=== PATIENT | female | born 1970 | race Caucasian/White ===

== ENCOUNTER 2017-09-18 09:25 | Emergency (ER) | payer BC ==
--- NOTE | 2017-09-18 11:05 | RAD ---
RIGHT KNEE 4 VIEWS: Date: 09/18/17 HISTORY: Injury. Pain. COMPARISON: 08/11/08. FINDINGS: No joint effusion. Joint spaces are preserved. No fracture or malalignment. Nonspecific soft tissue calcifications project over the proximal right lower extremity. IMPRESSION: No post-traumatic change. POS: [facility]
== END 2017-09-18 11:47 | disposition home or self-care (01) ==
LOC: ERS 09:25
DX: S83.411A Sprain of medial collateral ligament of right knee, initial encounter (principal); F41.9 Anxiety disorder, unspecified; F17.210 Nicotine dependence, cigarettes, uncomplicated; X50.1XXA Overexertion from prolonged static or awkward postures, initial encounter

== ENCOUNTER 2020-05-18 09:15 | Inpatient (IN) | payer BC, OTHER ==
[2020-05-18 11:41] VITALS: BMI 36.6
[2020-05-21] MEDS ORDERED: Fentanyl 100 MCG/2 ML VIAL ONE ×4 (06:47→11:12)
[2020-05-21] MEDS ORDERED: Midazolam HCl 2 mg/2 ml Vial ONE (06:47)
[2020-05-21] MEDS ORDERED: Tranexamic Acid 1,000 MG/10 ML VIAL ONE (07:07)
[2020-05-21] MEDS ORDERED: Sodium Chloride 0.9% 100 ML ONE (07:07)
[2020-05-21] MEDS ORDERED: Vancomycin 1.5 GRAM/300 ML BAG ONE (07:07)
[2020-05-21] MEDS ORDERED: Promethazine HCl 25 MG/ML VIAL IM PRN ×2 (07:34→17:06)
[2020-05-21] MEDS ORDERED: Acetaminophen 325 MG TAB PO PRN ×2 (07:34→11:36)
[2020-05-21] MEDS ORDERED: HYDROcodone/Acetaminophen 10/325 mg Tablet PO PRN ×4 (07:34→11:36)
[2020-05-21] MEDS ORDERED: traMADol HCl 50 MG TAB PO PRN ×4 (07:34→11:36)
[2020-05-21] MEDS ORDERED: Ropivacaine 0.2% 550 ML 550 ML NERVE BLCK SCH (07:34)
[2020-05-21] MEDS ORDERED: Zolpidem Tartrate 5 MG TAB PO PRN ×2 (07:34→17:06)
[2020-05-21] MEDS ORDERED: Ondansetron PF 4 MG/2 ML Vial IVP PRN ×2 (07:34→17:06)
[2020-05-21] MEDS ORDERED: Fentanyl 100 MCG/2 ML VIAL IV PRN (07:34)
[2020-05-21] MEDS ORDERED: Bupivacaine HCl 0.5%/Epinephrine 1:200,000/PF 30 ml Vial ONE (09:39)
[2020-05-21] MEDS ORDERED: Dexamethasone 20 MG/5 ML VIAL ONE (09:44)
[2020-05-21] MEDS ORDERED: Ondansetron PF 4 MG/2 ML Vial ONE (09:44)
[2020-05-21] MEDS ORDERED: Ketorolac Tromethamine 30 MG/ML VIAL ONE (09:44)
[2020-05-21] MEDS ORDERED: Ropivacaine 0.2% HCl/PF (40 MG/20 ML VIAL) ONE (09:44)
[2020-05-21] MEDS ORDERED: Ropivacaine 0.5% HCl/PF (150 MG/30 ML VIAL) ONE (09:44)
[2020-05-21] MEDS ORDERED: Glycopyrrolate 0.2 MG/ML 5 ML SYRINGE ONE (09:44)
[2020-05-21] MEDS ORDERED: PHENYLEPHRINE-NS 100 MCG/ML 10 ML SYRINGE ONE (09:44)
[2020-05-21] MEDS ORDERED: Rocuronium Bromide 10 MG/ML (10ML VIAL) ONE (09:44)
[2020-05-21] MEDS ORDERED: PROPOFOL 200 MG/20 ML VIAL ONE (09:44)
[2020-05-21] MEDS ORDERED: EPHEDRINE 25 MG/5 ML SYRINGE ONE (09:44)
[2020-05-21] MEDS ORDERED: Lidocaine 1% PF 5 ML VIAL ONE (09:44)
[2020-05-21] MEDS ORDERED: Esmolol 100 MG/10 ML VIAL ONE (09:44)
[2020-05-21] MEDS ORDERED: HYDROmorphone 2 MG/ML VIAL ONE (10:06)
[2020-05-21] MEDS ORDERED: SUGAMMADEX SODIUM 200 MG/2 ML VIAL ONE (10:07)
[2020-05-21] MEDS ORDERED: Milk Of Magnesia 30 ML UDCUP PO PRN (11:36)
[2020-05-21] MEDS ORDERED: diphenhydrAMINE 50 MG CAP PO PRN (11:36)
[2020-05-21] MEDS ORDERED: Methocarbamol 500 MG TAB PO PRN (11:36)
[2020-05-21] MEDS ORDERED: Bisacodyl 10 MG SUPP PR PRN (11:36)
[2020-05-21] MEDS ORDERED: Ondansetron ODT 4 MG TAB PO PRN (11:36)
[2020-05-21] MEDS ORDERED: Methocarbamol 1 GM/10 ML VIAL SLOW IVP PRN (11:36)
[2020-05-21] MEDS ORDERED: Ibuprofen 200 MG TAB PO PRN (11:54)
[2020-05-21] MEDS ORDERED: Lorazepam 1 MG TAB PO PRN (11:55)
[2020-05-21] MEDS ORDERED: Ketorolac Tromethamine 30 MG/ML VIAL IVP SCH (12:00)
[2020-05-21] MEDS: Dextrose 5 %-0.45 % NaCl 1,000 ML IV SCH (12:22)
[2020-05-21] MEDS: CEFAZOLIN 2 GM in Premix Bag 1 BAG IVPB SCH (15:45)
[2020-05-21] MEDS ORDERED: Naloxone HCl 0.4 mg/ml Vial IV PRN (17:06)
[2020-05-21] MEDS ORDERED: diphenhydrAMINE 50 MG/ML VIAL IM PRN (17:06)
[2020-05-21] MEDS ORDERED: diphenhydrAMINE 25 MG CAP PO PRN (17:06)
[2020-05-21] MEDS ORDERED: fentaNYL Citrate/PF 2,000 MCG in Sodium Chloride 0.9% 60 ML IV PRN (17:06)
[2020-05-21] MEDS ORDERED: diphenhydrAMINE 50 MG/ML VIAL IVP PRN (17:06)
[2020-05-21] MEDS ORDERED: Communication Order-Pharmacy FS PRN (17:15)
[2020-05-21] MEDS ORDERED: Vancomycin 1.5 GRAM/300 ML BAG 1.5 GM in Premix Bag 1 BAG IVPB SCH (19:00)
[2020-05-21] MEDS: Famotidine 20 MG TAB PO SCH (21:56)
[2020-05-22] MEDS: CEFAZOLIN 2 GM in Premix Bag 1 BAG IVPB SCH (00:45)
[2020-05-22] MEDS: Dextrose 5 %-0.45 % NaCl 1,000 ML IV SCH ×3 (02:01→20:57)
[2020-05-22] MEDS ORDERED: PHENTERMINE HCL 37.5 MG PO SCH (07:30)
[2020-05-22] MEDS: Famotidine 20 MG TAB PO SCH ×2 (08:42→20:54)
[2020-05-22] MEDS ORDERED: traMADol HCl 50 MG TAB PO PRN (10:23)
[2020-05-22] MEDS ORDERED: Fentanyl 100 MCG/2 ML VIAL IV PRN (10:24)
[2020-05-22] MEDS ORDERED: traMADol HCl 50 MG TAB PO SCH (10:30)
[2020-05-22] MEDS ORDERED: Lorazepam 2 MG/ML VIAL SLOW IVP PRN (13:05)
[2020-05-22] MEDS: Ketorolac Tromethamine 30 MG/ML VIAL IVP PRN (15:42)
[2020-05-22] MEDS: HYDROcodone/Acetaminophen 10/325 mg Tablet PO PRN ×3 (15:42→23:20)
--- NOTE | 2020-05-22 17:07 | OP ---
DATE OF PROCEDURE: 05/21/2020 PREOPERATIVE DIAGNOSES: Right shoulder osteoarthritis, biceps tendinopathy. POSTOPERATIVE DIAGNOSES: Right shoulder osteoarthritis, biceps tendinopathy. PROCEDURES PERFORMED: 1. Right total shoulder arthroplasty. 2. Right biceps tenodesis. CHILD SUPPORT OFFICER: Thomas Badillo PA-C ANESTHESIOLOGIST: Tao Kovacs MD ANESTHESIA: The patient received a general endotracheal intubation with interscalene block. ESTIMATED BLOOD LOSS: Less than 250 mL. TOURNIQUET TIME: None. IMPLANTS: Tornier small 40 Perform CortiLoc, size 1 Simpliciti nucleus, 41 x 15 mm head. ANTIBIOTICS: Ancef 2 g, vancomycin 1.5 g, and TXA 1 g. COMPLICATIONS: None. HISTORY: Ms. Hewitt is a 49-year-old female, who presented with years of right shoulder pain. The patient failed conservative measures with injection, anti-inflammatories, therapy, and desired to have a right total shoulder arthroplasty. I discussed the risks and benefits of the surgery to include pain , scar, bleeding, infection, damage to vital structures, decreased range of motion and strength, continued pain despite surgical intervention, need for further surgeries, failure to procedure, long-term failure of the implants, damage to vital structures, nerves, arteries, tendons, decreased range of motion or strength, DVT, loss of life or limb. The patient understood the risks and benefits and elected to proceed. DESCRIPTION OF PROCEDURE: Time-out was performed designating the patient's right upper extremity as the operative site based on site, consents, and markings. After time-out, the patient's right upper extremity was prepped and draped in sterile fashion, placed in beach chair position. Placed a deltopectoral incision, dissected down through skin to fat. We came into the deltopectoral interval and achieved an elevated plane between the pectoralis and the deltoid coming down to the conjoined tendon. My assistant bookkeeper retracted the deltopectoral interval with Hohmanns to expose the interval. We then placed retractors, held until we positioned and placed [place] retractor in position to hold the tissue open. I came into the biceps, exposed the biceps that was cut by my assistant bookkeeper. We then used a small osteotome to make a wedge for the LTO, passed a #5 Ethibond from anterior to posterior and back for a whipstitch to control the tendon. We released the entirety of the capsule and we brought the head into position. My assistant bookkeeper placed a Crego to position the head as well as a Hohmann to bring it down into position to cut our head cut. We had to take 2 more mm off and smooth the cut to get more alignment with the anatomy. We rongeured the osteophytes. We then placed a sizer and centered the sizer over the head for position of our center pin drilled bicortically, opened our center reamer and cut our flanges for our Simpliciti nucleus. We then placed the retractor cover and went to the glenoid; we did a 360 degree release. My assistant bookkeeper held it with a Bankart and Darrach to expose the glenoid. He cut the anterior and inferior, and I cut the posterior and superior aspects to see if there was any release of the labrum. We exposed the entirety of glenoid. We sized to a 40 with Bankart in position to retract the humerus. We placed a 40 small Simpliciti pin through the guide, reamed for a 40 small and then drilled our center hole, placed our peg drill hole component first, and then drilled all three holes, placing pegs, trialed, removed, washed, left the stem and star in place with a 10 mL syringe, cemented all three peripheral holes, impacted in place, removed the cement, any excess cement washed and then moved back to the humerus. We left the nucleus trial sized to a 41 mm x 15 mm head. Once the cement was hardened, my assistant bookkeeper reduced the shoulder. We were able to posterior translate internal and external rotation and overhead elevation, and had good range of motion. After the cement was hardened, we washed, we removed out the trial. We passed three #5 Ethibond stitches just lateral to the LTO that we had performed through bone. We placed one more at the level of the cuff and back through the cuff for repair. We passed those through the nucleus of the final implant and then impacted into place. We placed our 41 x 15 mm head over top. We then started closing with number 5 ethibond stitch from inferior to superior over LTO our three stitches. We used our final stitch to pass back. Before we passed our biceps into the rotator interval and sewed it in place, we placed our final stitch to pass back to the rotator cuff and so in the lateral position we then used the suture we had placed more medially from the LTO as a double row and cut the stitches. We sewed the rotator interval, closed with #1 Ethibond. We washed. My assistant bookkeeper helped with closure of the deltopectoral interval as well as the subcu and anabella. The patient will be placed in a sling. Begin elbow, wrist, and hand motion, and will be discharged home tomorrow if pain is controlled. Job ID: [id number] MTDD
[2020-05-23] MEDS: Ketorolac Tromethamine 30 MG/ML VIAL IVP PRN ×2 (00:55→07:47)
[2020-05-23] MEDS: HYDROcodone/Acetaminophen 10/325 mg Tablet PO PRN (06:48)
[2020-05-23 07:44] VITALS: BP 120/74; TEMP 98.3
[2020-05-23] MEDS: Famotidine 20 MG TAB PO SCH (07:46)
--- NOTE | 2020-05-25 11:38 | DIS ---
DATE OF ADMISSION: 05/21/2020 DATE OF DISCHARGE: 05/23/2020 This is Quintin Valente PA-C dictating a report for Yvan Goldstein MD. PREOPERATIVE DIAGNOSIS: Right shoulder osteoarthritis/degenerative joint disease. POSTOPERATIVE DIAGNOSIS: Right shoulder osteoarthritis/degenerative joint disease. PROCEDURE: The patient underwent a right total shoulder replacement. HOSPITAL STAY: Unremarkable. Admitted to [place] [id number], where she worked with staff, Physical Therapy, Occupational Therapy, progressed quite well. By postop day 2, ready to discharge home. DISCHARGE CONDITION: Good/stable. DISPOSITION: Home. FOLLOWUP: Would be in 10 to 14 days or sooner if there are problems and/or concerns. DISCHARGE MEDICATIONS: Given with usage instructions. Job ID: [id number]
== END 2020-05-23 10:05 | disposition home or self-care (01) | DRG 483 ==
LOC: SJJU 05-21 06:11
PROVIDERS: ADMIT Orthopaedic Surgery; ATTEND Orthopaedic Surgery
PROC: 0RRJ0JZ Replacement of Right Shoulder Joint with Synthetic Substitute, Open Approach (ICD-10-PCS; principal; 2020-05-21)
PROC: 0LS30ZZ Reposition Right Upper Arm Tendon, Open Approach (ICD-10-PCS; 2020-05-21)
DX: M19.011 Primary osteoarthritis, right shoulder (principal); M75.21 Bicipital tendinitis, right shoulder; F41.9 Anxiety disorder, unspecified; F32.9 Major depressive disorder, single episode, unspecified; F17.290 Nicotine dependence, other tobacco product, uncomplicated; Z98.51 Tubal ligation status; Z01.818 Encounter for other preprocedural examination; Z11.59 Encounter for screening for other viral diseases
CPT/HCPCS: 71046; 80048; 85025; 85610; 87635; A4306; C1713; C1776; J0670; J0690; J1100; J1170; J1885; J2250; J2405; J2704; J2795; J3010; J3370; J3490; Q9967; U0003

== ENCOUNTER 2020-06-17 10:23 | Outpatient (CLI) | payer BC, OTHER ==
[2020-06-17 15:54] LABS: Hemoglobin 12.5 g/dL (12.0-16.0)
[2020-06-18 12:11] LABS: SARS-CoV-2 MS2 Positive; SARS-CoV-2 N Gene Negative; SARS-CoV-2 S Gene Negative; SARS-CoV-2 by NAA Not Detected (NotDetected); SARS-CoV-2 orf1ab Negative
== END 2020-06-17 10:24 | disposition home or self-care (01) ==
LOC: LABBT 10:23
PROVIDERS: ATTEND Orthopaedic Surgery
DX: Z01.812 Encounter for preprocedural laboratory examination (principal); Z20.828 Contact with and (suspected) exposure to other viral communicable diseases; I96 Gangrene, not elsewhere classified; Z96.611 Presence of right artificial shoulder joint
CPT/HCPCS: 85014; 85018; 85652; 86140; 87635; U0003

== ENCOUNTER 2020-06-19 10:58 | Day surgery (SDC) | payer BC ==
[2020-06-17 14:55] VITALS: BMI 36.6
[2020-06-19] MEDS ORDERED: Lidocaine 1% PF 5 ML VIAL ONE (11:14)
[2020-06-19] MEDS ORDERED: PROPOFOL 200 MG/20 ML VIAL ONE (11:14)
[2020-06-19] MEDS ORDERED: Clindamycin/D5W 600 mg/50 ml Premix Bag ONE (11:31)
[2020-06-19] MEDS ORDERED: Fentanyl 100 MCG/2 ML VIAL ONE ×3 (13:11→14:17)
[2020-06-19] MEDS ORDERED: HYDROcodone/Acetaminophen 5/325 mg Tablet ONE (15:40)
--- NOTE | 2020-06-21 11:58 | OP ---
DATE OF PROCEDURE: 06/19/2020 PREOPERATIVE DIAGNOSIS: Status post right total shoulder with distal wound skin necrosis with failure of healing. POSTOPERATIVE DIAGNOSIS: Status post right total shoulder with distal wound skin necrosis with failure of healing. PROCEDURE PERFORMED: Excision of necrotic distal skin with irrigation, debridement, and closure. CLINICAL QUALITY RN: None. ANESTHESIOLOGIST: Julita Sorenson MD ANESTHESIA: The patient received a LMA. ESTIMATED BLOOD LOSS: Less than 10 mL. TOURNIQUET TIME: None. ANTIBIOTICS: Clindamycin 600 mg. Culture x1. COMPLICATION: None. HISTORY OF PRESENT ILLNESS: Ms. Hewitt is a 49-year-old female, who presents with right shoulder skin necrosis at the distal extent of her incision. I am not sure, but the patient has very friable skin and likely it was just a subcutaneous stitch that caused an area to start. It was not constantly draining, but she was unable to heal that. I discussed with her that I would evaluate the wound, aspirate the joint as needed, probe distally and wash it out if there were any signs of changes or infection. She understood the risks and benefits of the surgery to include, pain, scar, bleeding, infection, damage to vital structures, decreased range of motion and strength, need for revision, need for hardware removal, need for another procedure. She understood the risks and benefits of the procedure and elected to proceed. DESCRIPTION OF PROCEDURE: Time-out was performed designating the patient's right upper extremity as the operative site based on site, consents, and marking. After time-out, the patient's right upper extremity was prepped and draped with betadine. After time-out, I used the hemostat and bluntly dissected down to the patient's fat plane. The deltopectoral interval was closed and could find no tracking of the wound deep. I washed a total of 1 L through the wound. I excised the patient's skin necrosis area by about 1 cm making an ellipse for helping with closure. Also, I took some of the fat of the sidewall on both sides of the incision. I gently curetted the distal incision. I completed my wash and controlled bleeding. I closed the incision with 3-0 nylon with trauma stitch in the middle, with 2 horizontal mattress and some simples to help approximate the wound. I placed a soft tissue dressing. The patient will be discharged home with clindamycin and pain medications. She will begin range of motion as tolerated and I will see her back in about 2 weeks to consider suture removal. Job ID: [id number] MTDD
== END 2020-06-19 16:15 | disposition home or self-care (01) ==
LOC: SDC 10:58
PROVIDERS: ATTEND Orthopaedic Surgery
PROC: 0HBBXZZ Excision of Right Upper Arm Skin, External Approach (ICD-10-PCS; principal; 2020-06-19)
DX: I96 Gangrene, not elsewhere classified (principal); F32.9 Major depressive disorder, single episode, unspecified; F41.9 Anxiety disorder, unspecified; F17.210 Nicotine dependence, cigarettes, uncomplicated; Z79.899 Other long term (current) drug therapy; Z96.611 Presence of right artificial shoulder joint
CPT/HCPCS: 87070; 87077; 87186; 87205; J2704; J3010; J3490

== ENCOUNTER 2023-08-09 09:55 | Outpatient (CLI) | payer BC | END 2023-08-09 09:56 | disposition home or self-care (01) | LOC: BICMAMMO 09:55 | PROVIDERS: ATTEND Physician Assistant | DX: Z12.31 Encounter for screening mammogram for malignant neoplasm of breast (principal); Z80.3 Family history of malignant neoplasm of breast; Z91.89 Other specified personal risk factors, not elsewhere classified | CPT/HCPCS: 77063; 77067 ==

== ENCOUNTER 2024-03-01 13:17 | Outpatient (CLI) | payer BC | END 2024-03-01 13:18 | disposition home or self-care (01) | LOC: BICCT 13:17 | PROVIDERS: ATTEND Internal Medicine Hematology & Oncology | DX: Z12.2 Encounter for screening for malignant neoplasm of respiratory organs (principal); F17.210 Nicotine dependence, cigarettes, uncomplicated; J43.9 Emphysema, unspecified | CPT/HCPCS: 71271 ==